=== PATIENT | male | born 1960 | race Caucasian/White ===

== ENCOUNTER 2017-01-17 06:10 | Day surgery (SDC) | payer OTHER ==
[2017-01-13 20:41] LABS: HEMATOCRIT 42.3 % (40.0-51.0); HEMOGLOBIN 13.9 g/dL (13.6-17.8)
[2017-01-13 20:53] LABS: BUN (BLOOD UREA NITROGEN) 18 MG/DL (6-23); CALCIUM, SERUM 9.1 MG/DL (8.5-10.4); CHLORIDE, SERUM 110 MMOL/L (96-112); CO2 (CARBON DIOXIDE) 29 MMOL/L (24-34); CREATININE 1.13 MG/DL (0.70-1.30); GFR AFRICAN AMERICAN 83 ML/MIN (>=60); GFR NON AFRICAN AMERICAN 72 ML/MIN (>=60); GLUCOSE, SERUM 95 MG/DL (60-99); POTASSIUM, SERUM 4.3 MMOL/L (3.5-5.3); SODIUM, SERUM 142 MMOL/L (135-148)
--- NOTE | ~2017-01-17 | OP ---
Record Of Operation [facility] [address] [place]. [address] NAME: FAIZA SERVIN : 58 STATUS : [facility]#: [id number] AGE: 56 ADM/REG DATE : 01/17/17 MR#: [id number] REPORT SERV DATE: 01/24/17 DICTATED BY: CHAO RICHARDSON DATE: 01/24/17 REPORT STATUS : Draft TRANSCRIBED BY: MODAldair DATE: 01/24/17 DATE OF PROCEDURE: 01/17/2017 PREOPERATIVE DIAGNOSES: Pansinusitis with nasal polyps and deviated nasal septum. POSTOPERATIVE DIAGNOSES: Pansinusitis with nasal polyps and deviated nasal septum. PROCEDURES: Right endoscopic maxillary antrostomy with left endoscopic maxillary antrostomy with tissue removal, left total ethmoidectomy, left frontal sinusotomy, and left sphenoid sinusotomy with tissue removal. ANESTHESIA: General endotracheal. ESTIMATED BLOOD LOSS: 200 mL. INTRAOPERATIVE FLUIDS: 1 L of crystalloid. INTRAOPERATIVE FINDINGS: Extensive polypoid disease and chronic sinusitis with fungal debris identified throughout the paranasal sinuses on the left side. Retained uncinate tissue on the right side is concerning for possible chronic sinusitis in the future for which a revision right endoscopic maxillary antrostomy was performed. A septoplasty was required to gain access to the left middle meatus. DESCRIPTION OF PROCEDURE: The patient was identified in the holding, and transported to the operating room. In the operating room, the patient was placed in the operating room table in a supine position. Following induction of anesthesia, the patient was intubated without difficulty. Afrin-soaked pledgets were placed to the nose, bilaterally. The septum was injected with 1% lidocaine with 1:100,000 epinephrine. The patient was then prepped and draped in preparation for his nasal surgery. The Afrin packs were removed. The polypoid tissue was debrided from the left side of the nose; however, the patient did have a left- sided nasal septal deflection which limited access into the left middle meatus at this point. Attention was turned to the right side of the nose. As had been noted previously, there was a secondary sinus ostium on the left side with retained uncinate tissue, which would predispose the patient to recurrent sinusitis on the right side. I did, therefore, removed the intervening tissue between the natural maxillary sinus ostium and the secondary sinus opening. Examination of the sinus with a 30 degree scope revealed no significant inflammation or drainage within the maxillary sinus. At this point, a septoplasty was performed to improve access into the left middle meatus. A José incision was created in the left side of the nose. A mucoperichondrial flap was developed and extended posteriorly over the bony cartilaginous junction. An incision was created through the quadrangular cartilage, leaving a greater than 1 cm caudal strut. A mucoperichondrial flap was then developed in a similar fashion in the right side of the nose. A strip of deflected cartilage was removed from the floor of the nose, removing a width of approximately 8 mm of cartilage from this area. The quadrangular cartilage was then divided from the bony nasal septum, leaving a strong dorsal attachment. This did allow the remaining quadrangular cartilage to return to the midline, and no further cartilaginous resection was required. Record Of Operation [facility] [address] [place]. [address] NAME: FAIZA SERVIN : 58 STATUS : [facility]#: [id number] AGE: 56 ADM/REG DATE : 01/17/17 MR#: [id number] REPORT SERV DATE: 01/24/17 DICTATED BY: CHAO RICHARDSON DATE: 01/24/17 REPORT STATUS : Draft TRANSCRIBED BY: FIDE DATE: 01/24/17 The patient did have a sharp deformity of the bony nasal septum to the left side at the junction of the perpendicular ethmoid and the vomer which was resected. There was a persistent spur of bone along the floor of the nose related to hypertrophic bone along the nasal crest, which was removed with the use of an osteotome. The flaps were placed and the septum was noted to be in the midline. The José incision was closed with interrupted 4-0 chromic suture. A quilting stitch was placed. With the septum returned to the midline, there was marked improvement in access to the left middle meatus. Additional inflammatory tissue was removed from the lateral nasal wall to gain access to the maxillary sinus. There was a large amount of polypoid disease within the maxillary sinus which was debrided. The sinus was irrigated yielding a moderate amount of caseous debris, appearing consistent with fungal debris. The sinus was copiously irrigated until no residual debris was identified. Examination of the sinus with the 30 and 70 degree scope revealed moderate to extensive mucosal thickening with no evidence of residual fungal debris within the maxillary sinus. The ethmoid sinuses were then similarly debrided. Once again, there was a large amount of polypoid disease as well as caseous debris identified within the ethmoid air cells. A sample of this debris was collected in a Lukens trap, and sent for routine culture. The caseous debris and polypoid tissue were debrided from the anterior and posterior ethmoid sinuses. Working superiorly, there was polypoid disease extending into the left frontal sinus which was removed with the assistance of the 30 and 70 degree scopes. A wide opening was created into the left frontal sinus. Irrigation of the frontal sinus yielded thick secretions within the frontal sinus; however, no caseous debris was identified. With the inflammation leading into the frontal sinus, I did opt to place a mini propel splint into this area. Working medial to the middle turbinate, the superior turbinate was identified and partially removed with the use of the sinus shaving instrumentation. Working medial to the superior turbinate, the natural opening into the sphenoid sinus was identified and the base of the sphenoid was opened removing tissue inferiorly and medially. The sphenoid sinus was irrigated yielding a large amount of caseous debris. The sphenoid sinus was irrigated until no residual debris was identified. The sphenoid sinus was examined with the 30-degree scope with no evidence of residual caseous debris; however, there was moderate to extensive inflammation of the mucosa within the sphenoid sinus. At the end of the operative procedure, there was no significant bleeding. Stammberger dressing was placed to the middle meatus on the left side. Rolled compressed Gelfoam was placed between the middle turbinate and lateral nasal wall, bilaterally. The inferior turbinates were outfractured. Kidd splints were applied to the nose. The patient was subsequently awakened from anesthesia, extubated in the operative room, transported to the recovery room in good condition. The patient tolerated the procedure well. There were no apparent complications. SPECIMENS: Included left maxillary, ethmoid, frontal, and sphenoid sinus contents with tissue from the right maxillary sinus and nasal septal bone and cartilage. Aspirate from the left ethmoid sinuses was sent for routine culture. MIRIAM/FIDE Chao Richardson M.D. Record Of [address] [address] NAME: FAIZA SERVIN : 58 STATUS : [facility] PAT#: [id number] AGE: 56 ADM/REG DATE : 01/17/17 MR#: [id number] REPORT SERV DATE: 01/24/17 DICTATED BY: CHAO RICHARDSON DATE: 01/24/17 REPORT STATUS : Draft TRANSCRIBED BY: JABIERL DATE: 01/24/17 / [id number] CC: Kirsten Ibarra M.D.
[~2017-01-17 06:10] MED LIST: COQ-10200 MG PO; COREG6 PO; CRESTOR40 MG PO; PRIN20 PO
== END 2017-01-17 13:50 | disposition home or self-care (01) ==
LOC: SDC 06:10
PROVIDERS: Otolaryngology
PROC: 099R4ZZ Drainage of Left Maxillary Sinus, Percutaneous Endoscopic Approach (ICD-10-PCS; 2017-01-17)
PROC: 09DV4ZZ Extraction of Left Ethmoid Sinus, Percutaneous Endoscopic Approach (ICD-10-PCS; 2017-01-17)
PROC: 09QT4ZZ Repair Left Frontal Sinus, Percutaneous Endoscopic Approach (ICD-10-PCS; 2017-01-17)
PROC: 09CX4ZZ Extirpation of Matter from Left Sphenoid Sinus, Percutaneous Endoscopic Approach (ICD-10-PCS; 2017-01-17)
PROC: 099Q4ZZ Drainage of Right Maxillary Sinus, Percutaneous Endoscopic Approach (ICD-10-PCS; principal; 2017-01-17 07:15)
DX: J33.8 Other polyp of sinus (principal); J32.4 Chronic pansinusitis; J34.2 Deviated nasal septum; B48.8 Other specified mycoses; I10 Essential (primary) hypertension; I25.2 Old myocardial infarction; E78.00 Pure hypercholesterolemia, unspecified; Z79.899 Other long term (current) drug therapy; Z87.891 Personal history of nicotine dependence; Z97.2 Presence of dental prosthetic device (complete) (partial); Z90.49 Acquired absence of other specified parts of digestive tract; Z98.890 Other specified postprocedural states
CPT/HCPCS: 36415; 80048; 85014; 85018; 87015; 87070; 87075; 87102; 87107; 87116; 88305; 88312; 93005; A9270-GY; J0295; J0690; J2250; J2405; J2710; J3010